=== PATIENT | male | born 1975 | race Caucasian/White ===

== ENCOUNTER → 2017-02-27 | Day surgery (SDC) | payer MEDICARE, OTHER ==
[~2017-02-27] MED LIST: BUPIVACAINE HCL PF 0.75% 30 ML VIAL ONE; HYDR-3516 PO; LACTATED RINGER'S 1000 ML INJ 1,000 ML ONE; LIDOCAINE 1.5%/EPINEPHrine 1:200,000 PF SOLN 30 ML AMP ONE; MIDAZOLAM HCL 5 MG/ML VIAL (1 ML) ONE; ONDANSETRON HCL 4 MG/2 ML VIAL IV PUSH ONE; PROPOFOL 200 MG/20 ML AMP IV ONE; RISP3 PO; ceFAZolin 2 GM PREMIX 50 ML ONE
--- NOTE | 2017-02-28 07:04 | MP ---
cc: ALICIA MERA DPM DATE OF SURGERY 02/27/2017 PREOPERATIVE DIAGNOSIS Left hallux abductovalgus, hypermobile first ray. POSTOPERATIVE DIAGNOSIS Left hallux abductovalgus, hypermobile first ray. PROCEDURES PERFORMED Left first metatarsal medial cuneiform fusion/modified Street bunionectomy. MATERIALS USED Right medical Ortholoc system, Lapidus plate and 2.7 locking and nonlocking screws x5 and x1 3.5 cannulated screws. SPECIMEN None ESTIMATED BLOOD LOSS Less than 30 mL ANESTHESIA General with popliteal and saphenous block DRAINS None TOURNIQUET TIME 76 minutes at a setting of 215 mmHg PLAN OF ACTIVITY PACU then DC home once stable with same-day surgery criteria JUSTIFICATION FOR THE PROCEDURE This is a pleasant 41-year male with worsening pain of the first MPJ and inability to wear regular shoe gear. He has exhausted conservative measures. He wished to move forward with surgical intervention. A long discussion took place with the patient's mother. We tried an eval before physical therapy to assess the patient's capability of being minimal to no weight-bear, he passed with flying colors. The risks and benefits explained including but not limited to painful hardware, burning, tingling, stiffness, numbness, recurrence of deformity. PROCEDURE IN DETAIL Under mild sedation, the patient is brought into the operating room, placed on the operating table in the supine position. Following the induction of general anesthesia, the patient's left lower extremity is scrubbed, prepped and draped in the usual aseptic fashion. The foot was elevated, exsanguinated and the previously placed midcalf tourniquet was inflated to 215 mmHg. An incision was made over the dorsal aspect of the first MPJ down to the medial cuneiform. Sharp and blunt dissection was carried down deep to the neurovascular and tendinous structures. An L-shaped capsulotomy was performed revealing a prominent dorsomedial eminence. A McGlamry elevator was introduced deep into the joint freeing up plantar and lateral contractures. A lateral capsulotomy was performed being careful not to violate the extensor hallucis longus tendon severing the fibular suspensory ligament. Next, sharp and blunt dissection was carried down to the level of the first metatarsal medial cuneiform joint. A biplanar wedge took place removing the base of the cartilaginous surface of the first metatarsal base as well as the head of the medial cuneiform. Utilizing proper AO technique, a screw was then placed from dorsal proximal to plantar distal and a percutaneous wire was then placed to serve as secondary temporary fixation. Then a medial compressive locking plate was then placed. This was the five hole plate and medially the two proximal screws were then place utilizing proper AO technique. These were locking screws and then utilizing the compression ramp that was on the other side of the fusion site, a bicortical screw was then placed further compressing the arthrodesis site and then two screws were placed in the most distal aspect of the plate. The wound was then flushed with copious amounts of normal saline. Fluoroscopy was visualized showing the screws in adequate placement. Minimal to no hallux abductovalgus with significant reduction of first metatarsal, second metatarsal angle. The wound was then closed in layers utilizing Vicryl. Skin was closed utilizing nylon. Upon relieving the tourniquet, there was a prompt hyperemic response to all digits and delayed capillary fill time. The patient was then positioned within a controlled ankle motion boot. The patient is to heel transfer weight-bear only. He will ice and elevate. I will see the patient and three to five days. HILLARY Sousa/JULIO C /3:36 PM /6:57 AM
== END | disposition home or self-care (01) ==
LOC: ESDC 11:45
PROVIDERS: ATTEND Podiatrist Foot & Ankle Surgery
DX: M20.12 Hallux valgus (acquired), left foot (principal)
CPT/HCPCS: 01480; 28297; 64450; 73620; 76000; C1713; J0690; J2250; J2405; J7120

== ENCOUNTER 2017-03-22 00:06 | Observation (INO) | payer MEDICARE, OTHER ==
[2017-03-22] VITALS (8 sets, daily range): BP systolic 88–114; BP diastolic 51–70; PULSE 82–101; RESP 15–18; TEMP 97.8–98.5; O2SAT 92–97
[~2017-03-22] VITALS: Ht 162.6 cm; Wt 112.0 kg
[2017-03-22] MEDS ORDERED: RISP3 PO (00:14)
[2017-03-22] MEDS ORDERED: HYDR-3516 PO (00:14)
[2017-03-22] MEDS ORDERED: PANTOPRAZOLE SODIUM 40 MG VIAL IV PUSH ONE (01:15)
[2017-03-22] MEDS ORDERED: ONDANSETRON HCL 4 MG/2 ML VIAL IV PUSH ONE (01:15)
[2017-03-22] MEDS ORDERED: SODIUM CHLOR 0.9% 1000 ML INJ 1,000 ML IV ONE ×3 (01:15→17:45)
[2017-03-22] MEDS ORDERED: MORPHINE SULFATE 4 MG/ML INJ IV PUSH ONE ×2 (01:15→07:30)
[2017-03-22 02:21] LABS: AUTOMATED NEUTROPHIL # 12.2 TH/MM3 (1.8-7.7); BASOPHIL # 0.2 TH/MM3 (0-0.2); BASOPHIL % 1.5 % (0.0-2.0); HEMATOCRIT 38.5 % (39.0-51.0); HEMO FLAGS DIFF FINAL; LYMPH % 6.6 % (9.0-44.0); MEAN CELL VOLUME 98.2 FL (80.0-100.0); MEAN CORPUSCULAR HEMOGLOBIN 34.4 PG (27.0-34.0); MONO % 6.9 % (0.0-8.0); PLATELET COUNT 238 TH/MM3 (150-450); RED BLOOD COUNT 3.92 MIL/MM3 (4.50-5.90); RED CELL DISTRIBUTION WIDTH 12.8 % (11.6-17.2); WHITE BLOOD COUNT 14.4 TH/MM3 (4.0-11.0)
[2017-03-22 02:33] LABS: ALT (GPT) 30 U/L (12-78); AMYLASE 40 U/L (25-115); ANION GAP 9 MEQ/L (5-15); AST (GOT) 28 U/L (15-37); BICARBONATE 26.6 MEQ/L (21.0-32.0); BLOOD UREA NITROGEN 20 MG/DL (7-18); CHLORIDE 105 MEQ/L (98-107); GLOMERULAR FILTRATION RATE 66 ML/MIN (>89); POTASSIUM 3.6 MEQ/L (3.5-5.1); SODIUM (NA) 141 MEQ/L (136-145)
[2017-03-22 02:35] LABS: ALKALINE PHOSPHATASE 79 U/L (45-117); TOTAL BILIRUBIN ADULT 0.4 MG/DL (0.2-1.0)
[2017-03-22] MEDS ORDERED: IOHEXOL 350 MG/ML 10 ML VIAL (for RAD DIAG) IV ONE (03:35)
--- NOTE | 2017-03-22 04:10 | RADRPT ---
EXAM DATE/TIME: 03/22/2017 03:29 [facility] COMPARISON: No previous studies available for comparison. INDICATIONS : Abdomen pain. IV CONTRAST: 95 cc Omnipaque 350 (iohexol) IV ORAL CONTRAST: No oral contrast ingested. RADIATION DOSE: 10.09 CTDIvol (mGy) MEDICAL HISTORY : None Downs Syndrome SURGICAL HISTORY : None. ENCOUNTER: Initial ACUITY: 1 day PAIN SCALE: 7/10 LOCATION: Bilateral abdomen TECHNIQUE: Volumetric scanning of the abdomen and pelvis was performed. Using automated exposure control and ad justment of the mA and/or kV according to patient size, radiation dose was kept as low as reasonably achievable to obtain optimal diagnostic quality images. DICOM format image data is available electro nically for review and comparison. FINDINGS: LOWER LUNGS: The visualized lower lungs are clear. Minimal pleural thickening bilaterally. LIVER: Homogeneous density without lesion. There is no dilation of the biliary tree. No calcified gallston es. SPLEEN: Normal size without lesion. PANCREAS: Within normal limits. KIDNEYS: Normal in size and shape. There is no mass, stone or hydronephrosis. ADRENAL GLANDS: Within normal limits. VASCULAR: There is no aortic aneurysm. BOWEL/MESENTERY: The stomach, small bowel, and colon demonstrate no acute abnormality. There is no free intraperitone al air or fluid. ABDOMINAL WALL: Within normal limits. RETROPERITONEUM: There is no lymphadenopathy. BLADDER: Mild wall thickening measuring 5 mm without mass. REPRODUCTIVE: Within normal limits. INGUINAL: There is no lymphadenopathy or hernia. MUSCULOSKELETAL: Within normal limits for patient age. CONCLUSION: 1. Mild bladder wall thickening, nonspecific. 2. No acute inflammatory process. Ben Maza MD on March 22, 2017 at 4:06 Board Certified Radiologist. This report was verified electronically.
[2017-03-22 04:37] LABS: BLOOD, URINE NEG (NEG); COMMENT (UR) CULT NOT INDICATED; CULTURE IF INDICATED CULT NOT INDICATED; GLUCOSE,URINE NEG (NEG); KETONE, URINE NEG (NEG); NITRITE,URINE NEG (NEG); PH, URINE 6.5 (5.0-8.5); URINE COLOR YELLOW (YELLW/STRAW)
[2017-03-22] MEDS ORDERED: NALOXONE HCL 0.4 MG/ML AMP IV PRN (06:15)
[2017-03-22] MEDS ORDERED: PIPERACIL-TAZO 2.25 GM PREMIX 50 ML IV ONE (06:15)
[2017-03-22] MEDS ORDERED: SODIUM CHLORIDE 0.9% FLUSH 10 ML FLUSH IV FLUSH PRN (06:15)
--- NOTE | 2017-03-22 06:17 | PD ---
HPI Chief Complaint: Abdominal Pain Time Seen by Provider: 00:38 (Cole Agosto MD) Travel History International Travel<30 days: No Contact w/Intl Traveler<30days: No Traveled to known affect area: No (Cole Agosto MD) History of Present Illness HPI System Dispatcher signing for document in draft. (Cori Cueva MD) PFSH Past Medical History Medical History: Denies Significant Hx (Cole Agosto MD) Past Surgical History Other Surgery: Yes (L. FOOT) (Cole Agosto MD) Social History Alcohol Use: Yes ([facility].) Tobacco Use: No Substance Use: No (Cole Agosto MD) Allergies-Medications (Allergen,Severity, Reaction): Coded Allergies: No Known Allergies (Verified , 09/04/04) Reported Meds & Prescriptions Reported Meds & Active Scripts Active Reported Risperdal (Risperidone) 3 Mg Tab 3 Mg PO HS (Cori Cueva MD) Review of Systems ROS Limitations: Other: (System Dispatcher signing for document in draft. ) ( Cori Cueva MD) Physical Exam Narrative System Dispatcher signing for document in draft. (Cori Cueva MD) Data Data Orders Complete Blood Count With Diff (03/22/17 01:06) Comprehensive Metabolic Panel (03/22/17 01:06) Direct Bilirubin (03/22/17 01:06) Lipase (03/22/17 01:06) Amylase (03/22/17 01:06) Urinalysis - C+S If Indicated (03/22/17 01:06) Sodium Chlor 0.9% 1000 Ml Inj (Ns 1000 M (03/22/17 01:15) Pantoprazole Inj (Protonix Inj) (03/22/17 01:15) Ondansetron Inj (Zofran Inj) (03/22/17 01:15) Morphine Inj (Morphine Inj) (03/22/17 01:15) Ct Abd/Pel W Iv Contrast(Rout) (03/22/17 ) Iohexol 350 Inj (Omnipaque 350 Inj) (03/22/17 03:35) Complete Blood Count With Diff (03/22/17 04:59) Chest, Pa & Lat (03/22/17 ) Us Abdomen Complete (03/22/17 ) Place In Observation (03/22/17 ) Vital Signs (Adult) Q4H (03/22/17 06:11) Activity Oob With Assistance (03/22/17 06:11) Funeral Sales Manager / Telemetry .CONTINUOUS (03/22/17 06:11) Sodium Chlor 0.9% 1000 Ml Inj (Ns 1000 M (03/22/17 06:11) Sodium Chloride 0.9% Flush (Ns Flush) (03/22/17 06:15) Sodium Chloride 0.9% Flush (Ns Flush) (03/22/17 09:00) Comprehensive Metabolic Panel (03/23/17 06:00) Complete Blood Count With Diff (03/23/17 06:00) Case Management Consult (03/22/17 06:11) Naloxone Inj (Narcan Inj) (03/22/17 06:15) Admit Order (Ed Use Only) (03/22/17 06:12) Blood Culture (03/22/17 06:12) Piperacil-Tazo 2.25 Gm Premix (Zosyn 2.2 (03/22/17 06:15) (Cori Cueva MD) MDM Medical Decision Making Medical Screen Exam Complete: Yes Emergency Medical Condition: Yes Medical Record Reviewed: Yes (Cole Agosto MD) Medical Screen Exam Complete: Yes Emergency Medical Condition: Yes Differential Diagnosis System Dispatcher signing for document in draft. Narrative Course System Dispatcher signing for document in draft. (Cori Cueva MD) Diagnosis Primary Impression: Intractable abdominal pain Additional Impression: Leukocytosis Admitting Information Admitting Physician Requests: Admit (Cole Agosto MD) Scripts Bedside Commode 1 Mis Mis #1 Ea .route As Directed Prov:Eulalia Pringle PA-C 03/23/17 Pantoprazole (Protonix)40 Mg Tab40 Mg PO DAILY #30 TAB Ref 0 Prov:Eulalia Pringle PA-C 03/23/17 Cole Agosto MD Mar 22, 2017 06:17 Cori Cueva MD Apr 06, 2017 17:22 Lymphocytes (%) (Auto) 6.6 % Monocytes (%) (Auto) 6.9 % Eosinophils (%) (Auto) 0.0 % Basophils (%) (Auto) 1.5 % Neutrophils # (Auto) 12.2 TH/MM3 Lymphocytes # (Auto) 1.0 TH/MM3 Monocytes # (Auto) 1.0 TH/MM3 Eosinophils # (Auto) 0.0 TH/MM3 Basophils # (Auto) 0.2 TH/MM3 CBC Comment DIFF FINAL Differential Comment Sodium Level 141 MEQ/L Potassium Level 3.6 MEQ/L Chloride Level 105 MEQ/L Carbon Dioxide Level 26.6 MEQ/L Anion Gap 9 MEQ/L Blood Urea Nitrogen 20 MG/DL Creatinine 1.20 MG/DL Estimat Glomerular Filtration 66 ML/MIN Rate Random Glucose 138 MG/DL Calcium Level 7.9 MG/DL Total Bilirubin 0.4 MG/DL Direct Bilirubin 0.1 MG/DL Aspartate Amino Transf 28 U/L (AST/SGOT) Alanine Aminotransferase 30 U/L (ALT/SGPT) Alkaline Phosphatase 79 U/L Total Protein 6.9 GM/DL Albumin 3.1 GM/DL Amylase Level 40 U/L Lipase 80 U/L Urine Color YELLOW Urine Turbidity CLEAR Urine pH 6.5 Urine Specific [place] 1.014 Urine Protein NEG mg/dL Urine Glucose (UA) NEG mg/dL Urine Ketones NEG mg/dL Urine Occult Blood NEG Urine Nitrite NEG Urine Bilirubin NEG Urine Urobilinogen LESS THAN 2.0 MG/DL Urine Leukocyte Esterase NEG Urine RBC LESS THAN 1 /hpf Urine WBC 1 /hpf Microscopic Urinalysis Comment CULT NOT INDICATED MDM Medical Decision Making Medical Screen Exam Complete: Yes Emergency Medical Condition: Yes Medical Record Reviewed: Yes Diagnosis Primary Impression: Intractable abdominal pain Additional Impression: Leukocytosis Admitting Information Admitting Physician Requests: it Cole Agosto MD Mar 22, 2017 06:17
--- NOTE | 2017-03-22 06:40 | RADRPT ---
EXAM DATE/TIME: 03/22/2017 06:22 [facility] COMPARISON: No previous studies available for comparison. INDICATIONS : Evaluate for pneumonia. MEDICAL HISTORY : Downs syndrome. SURGICAL HISTORY : None. ENCOUNTER: Initial ACUITY: 1 day PAIN SCORE: Non-responsive. LOCATION: Bilateral chest FINDINGS: PA and lateral views of the chest demonstrate minimal right basilar density. Left lung clear. Heart e nlarged. The cardiomediastinal contours are unremarkable. Osseous structures are intact. CONCLUSION: Minimal right basilar density could be atelectasis or infiltrate.. Ben Maza MD on March 22, 2017 at 6:38 Board Certified Radiologist. This report was verified electronically.
[2017-03-22] MEDS ORDERED: PROMETHAZINE INJ 25 MG/ML VIAL IM ONE (07:30)
[2017-03-22] MEDS: SODIUM CHLOR 0.9% 1000 ML INJ 1,000 ML IV SCH ×4 (07:41→22:46)
--- NOTE | 2017-03-22 08:34 | RADRPT ---
EXAM DATE/TIME: 03/22/2017 07:25 [facility] COMPARISON: CT ABDOMEN & PELVIS W CONTRAST, March 22, 2017, 3:29. INDICATIONS : Abdominal pain. MEDICAL HISTORY : Abdominal pain. SURGICAL HISTORY : Left foot. ENCOUNTER: Initial ACUITY: 1 day PAIN SCORE: 8/10 LOCATION: Abdomen. MEASUREMENTS: LIVER: 15.8 cm length COMMON DUCT: 3 mm RIGHT KIDNEY: 10.8 x 4.6 x 4.3 cm LEFT KIDNEY: 10.3 x 4.7 x 5.1 cm SPLEEN: 9.1 cm length AORTA: 2.4cm maximal FINDINGS: LIVER: Increased echotexture without focal lesion or ductal dilatation. COMMON DUCT: No intraluminal mass or stone visualized. GALLBLADDER: Contains no stones, demonstrates no wall thickening or pericholecystic fluid. PANCREAS: The visualized portions are within normal limits. RIGHT KIDNEY: No hydronephrosis, stone or mass. LEFT KIDNEY: No hydronephrosis, stone or mass. The long haul truck driver documents a hypoechoic area at the upper pole shanda uring 2.2 cm. However, no abnormality is identified on the CT performed earlier today in this region. SPLEEN: No focal lesion. AORTA: Non aneurysmal. IVC: Within normal limits. There is trace left pleural fluid. CONCLUSION: 1. No acute finding is identified to explain the patient's abdominal pain. 2. Hepatic steatosis. 3. Solder Technician reports a 2.2 cm lesion at the upper pole of the left kidney but none is visualized on the CT performed a few hours ago. Therefore, this is likely not a true lesion. Matthew Hughes MD on March 22, 2017 at 8:19 Board Certified Radiologist. This report was verified electronically.
[2017-03-22] MEDS: SODIUM CHLORIDE 0.9% FLUSH 10 ML FLUSH IV FLUSH SCH ×2 (09:00→21:00)
--- NOTE | 2017-03-22 09:12 | HHI.HP ---
[facility] Service [facility] Primary Care Physician No Primary Care Physician Admission Diagnosis Abdominal pain Diagnoses: Chief Complaint: Abdominal pain Travel History International Travel<30 Days: No Contact w/Intl Traveler <30 Da: No Traveled to Known Affected Are: No History of Present Illness 41-year-old male past med history of Down syndrome complaining of abdominal pain. Patient stated last night he had very large meal and started to have right upper quadrant pain. Pain is constant, nonradiating. Patient feels that pain worsens with meals. He stated that he tries to eat small meals throughout the day. Patient does have Down syndrome and is not the greatest historian. I spoke to his mother Mrs. Mathis who stated that she is unsure if abdominal pain is associated with food. Per his mother he also stated complained of right leg pain. Patient did have recent surgery which he had bunion removal of his left foot. Patient has good ambulation since surgery. Denies any nausea/ vomiting, fevers/chills, constipation or diarrhea. Review of Systems Constitutional: DENIES: Diaphoretic episodes, Fatigue, Fever, Weight gain, Weight loss, Chills, Dizziness, Change in appetite, Night Sweats Endocrine: DENIES: Heat/cold intolerance, Polydipsia, Polyuria, Polyphagia Eyes: DENIES: Blurred vision, Diplopia, Eye inflammation, Eye pain, Vision loss , Photosensitivity, Double Vision Respiratory: DENIES: Apneas, Cough, Snoring, Wheezing, Hemoptysis, Sputum production, Shortness of breath Cardiovascular: DENIES: Chest pain, Palpitations, Syncope, Dyspnea on Exertion , PND, Lower Extremity Edema, Orthopnea, Claudication Gastrointestinal: COMPLAINS OF: Abdominal pain, DENIES: Black stools, Bloody stools, Constipation, Diarrhea, Nausea, Vomiting, Difficulty Swallowing, Anorexia Genitourinary: DENIES: Sexual dysfunction, Urinary frequency, Urinary incontinence, Urgency, Hematuria, Dysuria, Nocturia, Penile Discharge, Testicular Pain, Testicular Swelling Musculoskeletal: DENIES: Joint pain, Muscle aches, Stiffness, Joint Swelling, Back pain, Neck pain Integumentary: DENIES: Abnormal pigmentation, Nail changes, Pruritus, Rash Hematologic/lymphatic: DENIES: Bruising, Lymphadenopathy Immunologic/allergic: DENIES: Eczema, Urticaria Neurologic: DENIES: Abnormal gait, Headache, Localized weakness, Paresthesias, Seizures, Speech Problems, Tremor, Poor Balance Psychiatric: DENIES: Anxiety, Confusion, Mood changes, Depression, Hallucinations, Agitation, Suicidal Ideation, Homicidal Ideation, Delusions Past Family Social History Past Medical History Down syndrome Past Surgical History Left bunion removal Reported Medications Hydrocodone-Acetaminophen 5-325 mg Tab 1 Tab PO Q4H PRN Risperdal (Risperidone) 3 Mg Tab 3 Mg PO HS Allergies: Coded Allergies: No Known Allergies (Verified , 09/04/04) Active Ordered Medications Current Medications Sodium Chloride (NS 1000 ml Inj) 1,000 ml @ 999 mls/hr BOLUS ONCE IV Last administered on 03/22/17 01:59; Start 03/22/17 at 01:15; Stop 03/22/17 at 02:15; Status DC Pantoprazole Sodium (Protonix Inj) 40 mg ONCE ONCE IV PUSH Last administered on 03/22/17 01:59; Start 03/22/17 at 01:15; Stop 03/22/17 at 01:16; Status DC Ondansetron HCl (Zofran Inj) 4 mg ONCE ONCE IV PUSH Last administered on 02:00; Start 03/22/17 at 01:15; Stop 03/22/17 at 01:16; Status DC Morphine Sulfate (Morphine Inj) 1 mg ONCE ONCE IV PUSH Last administered on 01:59; Start 03/22/17 at 01:15; Stop 03/22/17 at 01:16; Status DC Iohexol 95 ml 95 ml STK-MED ONCE IV ; Start 03/22/17 at 03:35; Stop 03/22/17 at 03 :36; Status DC Sodium Chloride (NS 1000 ml Inj) 1,000 ml @ 100 mls/hr Q10H IV Last administered on 03/22/17 07:41; Start 03/22/17 at 06:11 Sodium Chloride (NS Flush) 2 ml UNSCH PRN IV FLUSH FLUSH AFTER USING IV ACCESS ; Start 03/22/17 at 06:15 Sodium Chloride (NS Flush) 2 ml BID IV FLUSH ; Start 03/22/17 at 09:00 Naloxone HCl 0.4 mg 0.4 mg UNSCH PRN IV SEE LABEL COMMENTS; Start 03/22/17 at 06 :15 Piperacillin Sod/ Tazobactam Sod (Zosyn 2.25 Gm Premix) 50 ml @ 100 mls/hr ONCE ONCE IV Last administered on 03/22/17t 07:41; Start 03/22/17 at 06:15; Stop 03/22/17 at 06:44; Status DC Morphine Sulfate (Morphine Inj) 2 mg ONCE ONCE IV PUSH ; Start 03/22/17 at 07:30 ; Stop 03/22/17 at 07:31; Status DC Promethazine HCl 12.5 mg 12.5 mg ONCE ONCE IM ; Start 03/22/17 at 07:30; Stop at 07:31; Status DC Sodium Chloride (NS 1000 ml Inj) 1,000 ml @ 999 mls/hr BOLUS ONCE IV ; Start 03/22/17 at 09:00; Stop 03/22/17 at 10:00; Status UNV Family History Deny any past family history. Social History Patient lives with his parents. Denies any alcohol, tobacco, illicit drug use. Physical Exam Vital Signs Vital Signs Date Time Temp Pulse Resp B/P Pulse Ox O2 Delivery O2 Flow Rate FiO2 03/22/17 00:09 98.5 101 18 113/61 92 Physical Exam GENERAL: This is a well-nourished, well-developed patient, in no apparent distress. SKIN: No rashes, ecchymoses or lesions. Cool and dry. HEAD: Atraumatic. Normocephalic. No temporal or scalp tenderness. EYES: Pupils equal round and reactive. Extraocular motions intact. No scleral icterus. No injection or drainage. ENT: Nose without bleeding, purulent drainage or septal hematoma. Throat without erythema, tonsillar hypertrophy or exudate. Uvula midline. Airway patent. NECK: Trachea midline. No JVD or lymphadenopathy. Supple, nontender, no meningeal signs. CARDIOVASCULAR: Regular rate and rhythm without murmurs, gallops, or rubs. RESPIRATORY: Clear to auscultation. Breath sounds equal bilaterally. No wheezes , rales, or rhonchi. GASTROINTESTINAL: Abdomen soft, + TTP of RUQ to mid right quadrant, nondistended. No hepato-splenomegaly, or palpable masses. No guarding. MUSCULOSKELETAL: Extremities without clubbing, cyanosis, or edema. No joint tenderness, effusion, or edema noted. No calf tenderness. Negative Homans sign bilaterally. NEUROLOGICAL: Awake and alert. Cranial nerves II through XII intact. Motor and sensory grossly within normal limits. Five out of 5 muscle strength in all muscle groups. Normal speech. Laboratory Laboratory Tests Test 03/22/17 03/22/17 01:58 04:15 White Blood Count 14.4 Red Blood Count 3.92 Hemoglobin 13.5 Hematocrit 38.5 Mean Corpuscular Volume 98.2 Mean Corpuscular Hemoglobin 34.4 Mean Corpuscular Hemoglobin 35.0 Concent Red Cell Distribution Width 12.8 Platelet Count 238 Mean Platelet Volume 9.0 Neutrophils (%) (Auto) 85.0 Lymphocytes (%) (Auto) 6.6 Monocytes (%) (Auto) 6.9 Eosinophils (%) (Auto) 0.0 Basophils (%) (Auto) 1.5 Neutrophils # (Auto) 12.2 Lymphocytes # (Auto) 1.0 Monocytes # (Auto) 1.0 Eosinophils # (Auto) 0.0 Basophils # (Auto) 0.2 CBC Comment DIFF FINAL Differential Comment Sodium Level 141 Potassium Level 3.6 Chloride Level 105 Carbon Dioxide Level 26.6 Anion Gap 9 Blood Urea Nitrogen 20 Creatinine 1.20 Estimat Glomerular Filtration 66 Rate Random Glucose 138 Calcium Level 7.9 Total Bilirubin 0.4 Direct Bilirubin 0.1 Aspartate Amino Transf 28 (AST/SGOT) Alanine Aminotransferase 30 (ALT/SGPT) Alkaline Phosphatase 79 Total Protein 6.9 Albumin 3.1 Amylase Level 40 Lipase 80 Urine Color YELLOW Urine Turbidity CLEAR Urine pH 6.5 Urine Specific [place] 1.014 Urine Protein NEG Urine Glucose (UA) NEG Urine Ketones NEG Urine Occult Blood NEG Urine Nitrite NEG Urine Bilirubin NEG Urine Urobilinogen LESS THAN 2.0 Urine Leukocyte Esterase NEG Urine RBC LESS THAN 1 Urine WBC 1 Microscopic Urinalysis Comment CULT NOT INDICATED Date/Time Procedure Status Source Growth 03/22/17 07:35 Aerobic Blood Culture Received Blood Line Pending 03/22/17 07:35 Anaerobic Blood Culture Received Blood Line Pending Result Diagram: 03/22/17 0158 03/22/17 0158 Imaging Last Impressions Chest X-Ray 03/22/17 0000 Signed Impressions: Service Date/Time: March 06:22 - CONCLUSION: Minimal right basilar density could be atelectasis or infiltrate.. Ben Maza MD Abdomen/Pelvis CT 03/22/17 0000 Signed Impressions: Service Date/Time: March 03:29 - CONCLUSION: 1. Mild bladder wall thickening, nonspecific. 2. No acute inflammatory process. Ben Maza MD Abdomen Ultrasound 03/22/17 0000 Signed Impressions: Service Date/Time: March 07:25 - CONCLUSION: 1. No acute finding is identified to explain the patient's abdominal pain. 2. Hepatic steatosis. 3. Stretcher And Drier reports a 2.2 cm lesion at the upper pole of the left kidney but none is visualized on the CT performed a few hours ago. Therefore, this is likely not a true lesion. Matthew Hughes MD Assessment and Plan Assessment and Plan 41-year-old male with Down syndrome who presented with abdominal pain Right upper quadrant to mid right quadrant pain -CT scan negative for any acute process. Abdominal ultrasound also negative. Labs reviewed and only significant for leukocytosis. Will do a HIDA scan. Will start Zosyn and Protonix since patient does have a elevated white count and was hypotensive. -Patient was given a bolus of IV fluids in the ED and at bedside blood pressure was in the 80s, but patient does not have tachycardia. Will give another bolus of IV fluids and increase maintenance fluids to 125 cc per hour. -Continue to monitor clinically with with serial abdominal exams. -discussed plan with is nurse. Down syndrome -Continue with home medication. right leg pain -Patient is a poor historian. No clinical signs for DVT. Suspicion for DVT is low but will get right LE Doppler since he is a poor historian. DVT prophylaxis -Low risk. Patient is ambulating. Continue to encourage ambulation. Code Status Full code Discussed Condition With Patient, his nurse, and his mother over the phone. Vanita Butler MD Mar 22, 2017 09:12
[2017-03-22] MEDS ORDERED: ACETAMINOPHEN/HYDROcodone 325 MG/5 MG TAB PO PRN (09:15)
--- NOTE | 2017-03-22 10:15 | RADRPT ---
EXAM DATE/TIME: 03/22/2017 09:32 [facility] COMPARISON: No previous studies available for comparison. INDICATIONS : Right leg pain. MEDICAL HISTORY : Right leg pain. SURGICAL HISTORY : Left foot surgery. ENCOUNTER: Initial ACUITY: 1 day PAIN SCORE: 8/10 LOCATION: Right leg. TECHNIQUE: Venous ultrasound of the leg was performed from the inguinal ligament to the proximal calf. Real-desmond e, color Doppler and spectral tracing, compression and augmentation techniques were used. FINDINGS: There is normal compressibility of the deep venous system from the inguinal region to the proximal ca lf. No echogenic clot is seen in the lumen of the common femoral, femoral, popliteal, and posterior tibial veins. There is a normal response of the venous system to proximal and distal augmentation an d respiration. CONCLUSION: No evidence of DVT. Rodlan Garcia MD on March 22, 2017 at 10:12 Board Certified Radiologist. This report was verified electronically.
[2017-03-22 10:43] LABS: HEMATOCRIT 38.8 % (39.0-51.0); HEMO FLAGS DIFF FINAL; MEAN CELL VOLUME 98.9 FL (80.0-100.0); MEAN CORPUSCULAR HEMOGLOBIN 33.9 PG (27.0-34.0); MEAN CORPUSCULAR HGB CONC 34.2 % (32.0-36.0); PLATELET COUNT 223 TH/MM3 (150-450); RED BLOOD COUNT 3.93 MIL/MM3 (4.50-5.90); RED CELL DISTRIBUTION WIDTH 13.2 % (11.6-17.2); WHITE BLOOD COUNT 14.5 TH/MM3 (4.0-11.0)
[2017-03-22 10:44] LABS: AUTOMATED NEUTROPHIL # 11.7 TH/MM3 (1.8-7.7); BASOPHIL % 0.2 % (0.0-2.0); LYMPH % 9.6 % (9.0-44.0); LYMPHOCYTE # 1.4 TH/MM3 (1.0-4.8); MONO % 9.9 % (0.0-8.0); NEUT % 80.3 % (16.0-70.0)
[2017-03-22] MEDS: PANTOPRAZOLE SODIUM 40 MG VIAL IV PUSH SCH (10:51)
[2017-03-22] MEDS ORDERED: SINCALIDE 5 MCG/5 ML VIAL IV PUSH ONE (13:05)
--- NOTE | 2017-03-22 14:09 | RADRPT ---
EXAM DATE/TIME: 03/22/2017 11:54 [facility] COMPARISON: No previous studies available for comparison. INDICATIONS : Abdominal pain after eating a large meal. DOSE: 4.1 mCi Tc99m Mebrofenin IV MEDICATION: 2.24 mcg Cholecystokinin IV; No symptomatic response. Cholecystokinin was administered by slow infusion over 8 minutes beginning at 60 minutes. MEDICAL HISTORY : Down syndrome. SURGICAL HISTORY : Left foot. ENCOUNTER: Initial ACUITY: 1 day PAIN SCALE: 4/10 LOCATION: Right upper quadrant TECHNIQUE: Following the intravenous administration of radiotracer, dynamic sequential image were performed with continuous acquisition. Time-activity curves were generated. FINDINGS: HEPATIIC KINETICS: There is prompt uptake of radiotracer in the liver. No focal defects are seen. There is normal rate of washout from the hepatic parenchyma. BILIARY CLEARANCE: Activity is first seen in the extrahepatic biliary system at 5-10 minutes. There is normal excretion into the small bowel. GALLBLADDER: Activity is first seen in the gallbladder at 10 minutes. POST CHOLECYSTOKININ: After Cholecystokinin administration, there is prompt emptying of the gallbladder with a 75 % ejectio n fraction. Common bile duct kinetics are normal and there is no evidence of biliary obstruction. BILIARY ENTERIC REFLUX: None observed. CLINICAL: The patient was asymptomatic after Cholecystokinin administration. CONCLUSION: Normal examination. Matthew Lopez MD on March 22, 2017 at 14:05 Board Certified Radiologist. This report was verified electronically.
[2017-03-22] MEDS: PIPERACIL-TAZO 3.375 GM PREMIX 50 ML IV SCH ×2 (15:19→21:05)
[2017-03-22] MEDS: ACETAMINOPHEN/HYDROcodone 325 MG/5 MG TAB PO PRN (17:51)
--- NOTE | 2017-03-22 20:43 | RADRPT ---
EXAM DATE/TIME: 03/22/2017 19:57 [facility] COMPARISON: No previous studies available for comparison. INDICATIONS : Right hip pain. MEDICAL HISTORY : None. SURGICAL HISTORY : None. ENCOUNTER: Initial ACUITY: >1 year PAIN SCORE: 4/10 LOCATION: Right hip FINDINGS: Examination of the right hip was performed with AP Pelvis. The primary and secondary trabecular yuly frances of the femoral neck is intact. The hip joint is of normal width without significant sclerosis or bony hypertrophy. The acetabulum is grossly intact. CONCLUSION: Negative exam. Dayday Delacruz MD on March 22, 2017 at 20:40 Board Certified Radiologist. This report was verified electronically.
[2017-03-22] MEDS ORDERED: risperiDONE 3 MG TAB PO SCH (21:00)
[2017-03-23 00:51] VITALS: PULSE 83
[2017-03-23] MEDS: PIPERACIL-TAZO 3.375 GM PREMIX 50 ML IV SCH ×2 (01:01→08:27)
[2017-03-23 03:30] VITALS: BP 95/51; PULSE 90; RESP 18; TEMP 98; O2SAT 94
[2017-03-23 03:51] VITALS: PULSE 94
[2017-03-23] MEDS: ACETAMINOPHEN/HYDROcodone 325 MG/5 MG TAB PO PRN ×2 (04:50→09:43)
[2017-03-23] MEDS: SODIUM CHLOR 0.9% 1000 ML INJ 1,000 ML IV SCH (06:01)
[2017-03-23 06:48] LABS: AUTOMATED NEUTROPHIL # 10.8 TH/MM3 (1.8-7.7); BASOPHIL % 0.3 % (0.0-2.0); EOSINOPHIL % 0.1 % (0.0-4.0); HEMATOCRIT 37.3 % (39.0-51.0); HEMO FLAGS DIFF FINAL; LYMPH % 7.6 % (9.0-44.0); MEAN CELL VOLUME 100.2 FL (80.0-100.0); MEAN CORPUSCULAR HEMOGLOBIN 33.5 PG (27.0-34.0); MEAN CORPUSCULAR HGB CONC 33.4 % (32.0-36.0); MONO % 8.3 % (0.0-8.0); NEUT % 83.7 % (16.0-70.0); PLATELET COUNT 226 TH/MM3 (150-450); RED BLOOD COUNT 3.73 MIL/MM3 (4.50-5.90); RED CELL DISTRIBUTION WIDTH 13.1 % (11.6-17.2); WHITE BLOOD COUNT 12.9 TH/MM3 (4.0-11.0)
[2017-03-23 07:17] LABS: ALKALINE PHOSPHATASE 71 U/L (45-117); ALT (GPT) 21 U/L (12-78); ANION GAP 6 MEQ/L (5-15); AST (GOT) 21 U/L (15-37); BICARBONATE 26.4 MEQ/L (21.0-32.0); BLOOD UREA NITROGEN 10 MG/DL (7-18); CHLORIDE 109 MEQ/L (98-107); GLOMERULAR FILTRATION RATE 93 ML/MIN (>89); POTASSIUM 3.3 MEQ/L (3.5-5.1); SODIUM (NA) 141 MEQ/L (136-145); TOTAL BILIRUBIN ADULT 0.7 MG/DL (0.2-1.0)
--- NOTE | 2017-03-23 08:25 | HHI.PR ---
Subjective Remarks Follow up for abdominal pain. The patient is sleeping upon my arrival, awakens to light touch. He states his abdominal pain has resolved. Denies any nausea/ vomiting. Denies any diarrhea. Denies fevers/chills. He states he is hungry and asks when breakfast will be arriving. Objective Vitals Vital Signs Date Time Temp Pulse Resp B/P Pulse Ox O2 Delivery O2 Flow Rate FiO2 03/23/17 05:47 16 03/23/17 03:51 94 03/23/17 03:30 98.0 90 18 95/51 94 03/23/17 00:51 83 03/22/17 23:09 98.2 85 18 114/70 92 03/22/17 22:10 87 03/22/17 19:16 98.2 93 18 91/57 95 03/22/17 16:15 98.0 83 15 97/57 95 03/22/17 13:29 101 03/22/17 10:33 88 15 94/53 97 03/22/17 08:30 97.8 82 16 88/51 95 Result Diagram: 03/23/17 0603 03/23/17 0603 Imaging Last Impressions Lower Extremity Ultrasound 03/22/17 0000 Signed Impressions: Service Date/Time: March 09:32 - CONCLUSION: No evidence of DVT. Roldan Garcia MD Hip and Pelvis X-Ray 03/22/17 0000 Signed Impressions: Service Date/Time: March 19:57 - CONCLUSION: Negative exam. Dayday Delacruz MD Hepatobiliary Scan Nuclear Medicine 03/22/17 0000 Signed Impressions: Service Date/Time: March 11:54 - CONCLUSION: Normal examination. Matthew Lopez MD Chest X-Ray 03/22/17 0000 Signed Impressions: Service Date/Time: March 06:22 - CONCLUSION: Minimal right basilar density could be atelectasis or infiltrate.. Ben Maza MD Abdomen/Pelvis CT 03/22/17 0000 Signed Impressions: Service Date/Time: March 03:29 - CONCLUSION: 1. Mild bladder wall thickening, nonspecific. 2. No acute inflammatory process. Ben Maza MD Abdomen Ultrasound 03/22/17 0000 Signed Impressions: Service Date/Time: March 07:25 - CONCLUSION: 1. No acute finding is identified to explain the patient's abdominal pain. 2. Hepatic steatosis. 3. Email Designer reports a 2.2 cm lesion at the upper pole of the left kidney but none is visualized on the CT performed a few hours ago. Therefore, this is likely not a true lesion. Matthew Hughes MD Objective Remarks GENERAL: Well-nourished, well-developed pleasant male patient in NAD. SKIN: Warm and dry. No rash. HEENT: Normocephalic. Atraumatic.Pupils equal and round. Mucous membranes pink and moist. NECK: Supple. Trachea midline. CARDIOVASCULAR: Regular rate and rhythm. S1, S2 noted. No murmur appreciated. RESPIRATORY: No accessory muscle use. Clear to auscultation. Breath sounds equal bilaterally. GASTROINTESTINAL: Abdomen soft, non-tender, nondistended. Normoactive bowel sounds x4. MUSCULOSKELETAL: No obvious deformities. Extremities without clubbing, cyanosis , or edema. NEUROLOGICAL: Awake and alert. No obvious cranial nerve deficits. Motor grossly within normal limits. Normal speech. PSYCHIATRIC: Appropriate mood and affect; insight and judgment normal. Medications and IVs Current Medications Medications (Trade) Dose Ordered Sig/Tracy Route Start Time Stop Time Status Last Admin (NS 1000 ml Inj) 1,000 ml @ 125 mls/hr Q8H IV 03/22/17 06:11 03/22/17 22:46 (NS Flush) 2 ml UNSCH PRN IV FLUSH 03/22/17 06:15 03/22/17 21:06 (NS Flush) 2 ml BID IV FLUSH 03/22/17 09:00 (Narcan Inj) 0.4 mg UNSCH PRN IV 03/22/17 06:15 (Protonix Inj) 40 mg Q24H IV PUSH 03/22/17 10:00 03/22/17 10:51 ([place] 5-325 Mg) 1 tab Q4H PRN PO 03/22/17 09:15 03/23/17 04:50 ([place] 5-325 Mg) 2 tab Q4H PRN PO 03/22/17 09:15 Risperidone 3 mg 3 mg HS PO 03/22/17 21:00 03/22/17 21:00 (Zosyn 3.375 Gm Premix) 50 ml @ 100 mls/hr Q6H IV 03/22/17 14:00 03/23/17 08:27 (KCl) 40 meq ONCE ONCE PO 03/23/17 09:00 03/23/17 09:01 A/P Assessment and Plan 41-year-old male with Down syndrome who presented with abdominal pain Abdominal Pain: at RUQ/epigastric. Abd/pelvis CT images reviewed, negative for any acute process. Abdominal ultrasound and HIDA scan also negative. Labs reviewed and only significant for mild leukocytosis, likely reactive. Afebrile throughout admission. Blood cultures with no growth to date. Initially given IV Zosyn prior to having all test results, however with negative work up and no signs of infection, will discontinue antibiotics. Continue Protonix, IVF hydration. Abdominal pain resolved. Advance diet to regular, patient tolerated well. Hypokalemia: suspect secondary to decreased oral intake. Given po KCl replacement. Down syndrome: Continue with home medications. Right Leg Pain: Patient is a poor historian. No clinical signs for DVT. Suspicion for DVT is low. Doppler U/S negative for DVT. Right hip/pelvis xray unremarkable. Recommend outpatient f/up with orthopedics. DVT prophylaxis-Low risk. Patient is ambulating. Discharge Planning 0830hrs: Can likely discharge today if patient tolerates breakfast. 1030hrs: patient tolerated breakfast well, no complaints of abdominal pain. He wants to go home. RN asked me to speak with patient's mother who is not happy about discharge however still plans to take the patient home, discharge paperwork already completed and signed. She states she can't believe he is being discharged when we didn't find what is wrong with his right leg because he 's "obviously in pain". Patient was witnessed by myself ambulating this morning and he denies any pain of the right leg. Explained to the mother that the patient is tolerating his meals and is ambulating his room without difficulty, there is no indication for further hospitalization. Discussed all of the patient 's imaging results were unremarkable. Discussed very mild leukocytosis likely reactive from recent surgery and abdominal pain, and patient has not had any fevers throughout hospitalization. I also called microbiology for blood culture results, preliminary cultures with no growth. Discussed further outpatient work up for right hip/leg pain and referral to orthopedics. Patient already has a walker and physical therapy at home. Although abdominal pain currently resolved, suggested follow up with gastroenterology if symptoms recur. Mother requesting bedside commode, will order. Of note, I offered for the mother to speak with the physician or the warehouse delivery driver and she abruptly hung up the phone in the middle of our conversation. Discharge patient to home Condition on discharge: Improved Regular Diet as tolerated Ad Iliana activity Rx written: Protonix 40mg daily, bedside commode Follow-up with primary care physician, orthopedics, and gastroenterology Eulalia Pringle PA-C Mar 23, 2017 8:25 am
[2017-03-23 08:30] VITALS: BP 100/58; PULSE 82; PULSE 86; RESP 15; TEMP 98.9; O2SAT 95
[2017-03-23] MEDS ORDERED: PROT40TA PO (08:48)
--- NOTE | 2017-03-23 08:49 | HHI.DCPOC ---
Discharge Care Plan Diagnosis: (1) Intractable abdominal pain (2) Gastritis Goals to Promote Your Health * To prevent worsening of your condition and complications * To maintain your health at the optimal level Directions to Meet Your Goals Take your medications as prescribed Follow your dietary instruction Follow activity as directed Keep your appointments as scheduled Take your immunizations and boosters as scheduled If your symptoms worsen call your PCP, if no PCP go to Urgent Care Center or Emergency Room Smoking is Dangerous to Your Health. Avoid second hand smoke Call the 24-hour hour crisis hotline for domestic abuse at Eulalia Pringle PA-C Mar 23, 2017 8:48 am
[2017-03-23] MEDS: SODIUM CHLORIDE 0.9% FLUSH 10 ML FLUSH IV FLUSH SCH (09:00)
[2017-03-23] MEDS ORDERED: POTASSIUM CHLORIDE 20 MEQ CONTROLLED RELEASE TAB PO ONE (09:00)
[2017-03-23] MEDS: PANTOPRAZOLE SODIUM 40 MG VIAL IV PUSH SCH (09:46)
[2017-03-23] MEDS ORDERED: BEDSIDE COMMODE1 MI1 (10:36)
== END 2017-03-23 11:38 | disposition home or self-care (01) ==
LOC: NEPC 00:06 → NEDA 06:15 → NEPHCDU 08:37
PROVIDERS: ADMIT Family Medicine; ATTEND Family Medicine
DX: R10.11 Right upper quadrant pain (principal); K29.70 Gastritis, unspecified, without bleeding; D72.829 Elevated white blood cell count, unspecified; I95.9 Hypotension, unspecified; M79.604 Pain in right leg; E87.6 Hypokalemia; Q90.9 Down syndrome, unspecified; K76.0 Fatty (change of) liver, not elsewhere classified; N28.9 Disorder of kidney and ureter, unspecified
CPT/HCPCS: 71020; 73502; 74177; 76700; 78227; 80053; 81001; 82150; 82248; 83690; 85025; 87040; 93971; 96361; 96374; 96375; 99285; A9537; C9113; G0378; J2270; J2405; J2543; J2805; J7030; Q9967